=== PATIENT | male | born 1995 | race African-American/Black ===

== ENCOUNTER 2020-09-19 16:27 | Inpatient (IN) | payer MEDICAID, OTHER ==
[~2020-09-19] VITALS: Ht 182.9 cm; Wt 74.1 kg
[2020-09-19] MEDS ORDERED: SODIUM CHLORIDE 0.9% 1,000 ML IV ONE ×2 (17:00)
[2020-09-19] MEDS ORDERED: HYDROmorphone HCL 2 MG/ML VL IV ONE ×3 (17:00→18:30)
[2020-09-19] MEDS ORDERED: ONDANSETRON HCL 4 MG/2 ML VIAL IV ONE (17:00)
[2020-09-19] MEDS ORDERED: KETOROLAC TROMETH 30 MG/ML 1ML VIAL IV ONE (17:00)
[2020-09-19 17:44] LABS: Basophils # (auto) 0.2 10 ^3/uL (0-0.2); Basophils % (auto) 1.3 % (0.0-2.0); Eosinophils # (auto) 0.1 10 ^3/uL (0-0.8); Eosinophils % (auto) 0.5 % (0.0-7.0); Hematocrit 26.5 % (41.0-53.0); Hemoglobin 8.9 g/dL (13.5-17.5); Lymphocytes # (auto) 2.1 10 ^3/uL (0.4-5.4); Lymphocytes % (auto) 15.7 % (10.0-50.0); Mean Corpuscular Hemoglobin 30.8 pg (28.0-32.0); Mean Corpuscular Hgb Conc. 33.7 g/dL (32.0-36.0); Mean Corpuscular Volume 91.4 fL (80.0-100.0); Monocytes # (auto) 1.9 10 ^3/uL (0-1.3); Monocytes % (auto) 14.2 % (0.0-12.0); Neutrophils % (auto) 68.3 % (37.0-80.0); Nucleated Red Blood Cells % 0.7 %; Platelet Count (auto) 374 10^3/uL (140-450); White Blood Cell 13.1 10^3/uL (4.4-10.8)
[2020-09-19 17:46] LABS: Red Cell Distribution Width 22.2 % (11.8-14.3)
[2020-09-19 18:05] LABS: Potassium 3.5 mmol/L (3.5-5.1)
[2020-09-19 18:09] LABS: Bilirubin, Total 3.7 mg/dL (0.2-1.0); Total Protein 8.5 g/dL (6.4-8.2)
[2020-09-19] MEDS ORDERED: ACETAMINOPHEN 325 MG TAB PO PRN (19:15)
[2020-09-19] MEDS ORDERED: MORPHINE SULF INJ 2 MG/ML SYRINGE 1ML IV PRN (19:15)
[2020-09-19] MEDS ORDERED: HYDROcodone-ACET 10/325MG TAB PO PRN (19:15)
[2020-09-19] MEDS ORDERED: NITROGLYCERIN 0.4 MG SL TAB SL PRN (19:15)
[2020-09-19] MEDS: SODIUM CHLORIDE 0.9% 1,000 ML IV SCH (21:16)
[2020-09-19] MEDS: HYDROmorphone HCL 2 MG/ML VL IV PRN (21:59)
[2020-09-19 23:20] VITALS: BP 98/50
[2020-09-20] MEDS ORDERED: FOLITAB22 PO (00:53)
[2020-09-20] MEDS ORDERED: PERCOT PO (00:53)
[2020-09-20] MEDS: HYDROmorphone HCL 2 MG/ML VL IV PRN ×6 (01:03→22:00)
[2020-09-20] MEDS: OXYCODONE W/ ACETAMINOPHEN 5/325MG TABLET PO PRN ×3 (01:57→16:48)
[2020-09-20] MEDS: SODIUM CHLORIDE 0.9% 1,000 ML IV SCH ×4 (02:25→22:01)
[2020-09-20 05:00] VITALS: BP 98/57
[2020-09-20 07:37] LABS: Basophils # (auto) 0.2 10 ^3/uL (0-0.2); Basophils % (auto) 1.2 % (0.0-2.0); Eosinophils # (auto) 0.2 10 ^3/uL (0-0.8); Eosinophils % (auto) 1.5 % (0.0-7.0); Hematocrit 23.7 % (41.0-53.0); Hemoglobin 8.1 g/dL (13.5-17.5); Lymphocytes # (auto) 3.3 10 ^3/uL (0.4-5.4); Lymphocytes % (auto) 24.7 % (10.0-50.0); Mean Corpuscular Hemoglobin 31.2 pg (28.0-32.0); Mean Corpuscular Hgb Conc. 34.3 g/dL (32.0-36.0); Monocytes # (auto) 2.2 10 ^3/uL (0-1.3); Monocytes % (auto) 16.3 % (0.0-12.0); Neutrophils # (auto) 7.5 10 ^3/uL (1.6-8.6); Neutrophils % (auto) 56.3 % (37.0-80.0); Nucleated Red Blood Cells % 0.6 %; Platelet Count (auto) 288 10^3/uL (140-450); Red Blood Cells 2.61 10^6/uL (4.5-5.90); Red Cell Distribution Width 21.9 % (11.8-14.3); White Blood Cell 13.3 10^3/uL (4.4-10.8)
[2020-09-20 08:06] LABS: Potassium 4.5 mmol/L (3.5-5.1)
[2020-09-20 08:11] LABS: BUN/Creatinine Ratio 14.6; Calcium 7.8 mg/dL (8.5-10.1); Magnesium 2.4 mg/dL (1.6-2.6)
[2020-09-20 09:00] VITALS: BP 104/40
[2020-09-20] MEDS: ENOXAPARIN SOD 40 MG/0.4 ML SYRINGE SC SCH (09:22)
[2020-09-20] MEDS ORDERED: HYDROmorphone HCL 2 MG/ML VL IV ONE (11:00)
[2020-09-20] MEDS ORDERED: KETOROLAC TROMETH 30 MG/ML 1ML VIAL IV ONE (11:30)
[2020-09-20 13:00] VITALS: BP 95/65
[2020-09-20 17:00] VITALS: BP 104/65
[2020-09-20] MEDS: KETOROLAC TROMETH 30 MG/ML 1ML VIAL IV PRN (20:03)
[2020-09-20] MEDS: ONDANSETRON HCL 4 MG/2 ML VIAL IV PRN (20:03)
[2020-09-20 22:00] VITALS: BP 89/54
[2020-09-21] VITALS (9 sets, daily range): BP systolic 96–120; BP diastolic 48–64
[2020-09-21] MEDS: HYDROmorphone HCL 2 MG/ML VL IV PRN ×5 (02:08→21:34)
[2020-09-21] MEDS: SODIUM CHLORIDE 0.9% 1,000 ML IV SCH ×3 (02:21→18:25)
[2020-09-21] MEDS: KETOROLAC TROMETH 30 MG/ML 1ML VIAL IV PRN ×3 (04:35→20:49)
[2020-09-21 06:18] LABS: Basophils # (auto) 0.1 10 ^3/uL (0-0.2); Eosinophils # (auto) 0.3 10 ^3/uL (0-0.8); Eosinophils % (auto) 2.4 % (0.0-7.0); Hematocrit 19.7 % (41.0-53.0); Lymphocytes % (auto) 17.2 % (10.0-50.0); Mean Corpuscular Hemoglobin 31.1 pg (28.0-32.0); Mean Corpuscular Hgb Conc. 35.1 g/dL (32.0-36.0); Mean Corpuscular Volume 88.6 fL (80.0-100.0); Monocytes % (auto) 16.6 % (0.0-12.0); Neutrophils # (auto) 7.4 10 ^3/uL (1.6-8.6); Neutrophils % (auto) 62.8 % (37.0-80.0); Nucleated Red Blood Cells % 0.7 %; Platelet Count (auto) 301 10^3/uL (140-450); Red Blood Cells 2.22 10^6/uL (4.5-5.90); White Blood Cell 11.8 10^3/uL (4.4-10.8)
[2020-09-21 06:31] LABS: Red Cell Distribution Width 24.3 % (11.8-14.3)
[2020-09-21 06:32] LABS: Hemoglobin 6.9 g/dL (13.5-17.5)
[2020-09-21 06:36] LABS: Magnesium 2.3 mg/dL (1.6-2.6); Potassium 3.8 mmol/L (3.5-5.1)
[2020-09-21 06:37] LABS: BUN/Creatinine Ratio 22.7; Calcium 7.9 mg/dL (8.5-10.1)
[2020-09-21] MEDS ORDERED: FOLIC ACID 1 MG TAB PO SCH (10:00)
[2020-09-21] MEDS: ONDANSETRON HCL 4 MG/2 ML VIAL IV PRN (10:42)
[2020-09-21] MEDS: ENOXAPARIN SOD 40 MG/0.4 ML SYRINGE SC SCH (11:00)
[2020-09-21] MEDS: FOLIC ACID 1 MG TAB PO SCH (11:00)
[2020-09-21] MEDS ORDERED: HYDROmorphone HCL 2 MG/ML VL IV PRN (14:15)
[2020-09-21 19:03] LABS: Basophils # (auto) 0.1 10 ^3/uL (0-0.2); Eosinophils # (auto) 0.3 10 ^3/uL (0-0.8); Hemoglobin 7.8 g/dL (13.5-17.5); Lymphocytes # (auto) 2.6 10 ^3/uL (0.4-5.4); Monocytes # (auto) 1.9 10 ^3/uL (0-1.3); Neutrophils # (auto) 8.1 10 ^3/uL (1.6-8.6); White Blood Cell 12.9 10^3/uL (4.4-10.8)
[2020-09-21 19:05] LABS: Basophils % (auto) 0.6 % (0.0-2.0); Eosinophils % (auto) 2.3 % (0.0-7.0); Hematocrit 21.8 % (41.0-53.0); Lymphocytes % (auto) 19.7 % (10.0-50.0); Mean Corpuscular Hemoglobin 31.1 pg (28.0-32.0); Mean Corpuscular Hgb Conc. 35.7 g/dL (32.0-36.0); Monocytes % (auto) 14.8 % (0.0-12.0); Neutrophils % (auto) 62.6 % (37.0-80.0); Nucleated Red Blood Cells % 0.6 %; Platelet Count (auto) 269 10^3/uL (140-450)
[2020-09-21 19:15] LABS: Red Cell Distribution Width 23.5 % (11.8-14.3)
[2020-09-22] MEDS: HYDROmorphone HCL 2 MG/ML VL IV PRN ×8 (00:52→23:54)
[2020-09-22] MEDS: SODIUM CHLORIDE 0.9% 1,000 ML IV SCH ×5 (04:24→17:52)
[2020-09-22 05:00] VITALS: BP 121/63
[2020-09-22 06:57] LABS: Basophils # (auto) 0.2 10 ^3/uL (0-0.2); Hemoglobin 7.6 g/dL (13.5-17.5)
[2020-09-22 06:58] LABS: Basophils % (auto) 1.7 % (0.0-2.0); Eosinophils # (auto) 0.4 10 ^3/uL (0-0.8); Eosinophils % (auto) 3.3 % (0.0-7.0); Hematocrit 21.1 % (41.0-53.0); Lymphocytes # (auto) 2.4 10 ^3/uL (0.4-5.4); Lymphocytes % (auto) 19.1 % (10.0-50.0); Mean Corpuscular Hemoglobin 31.7 pg (28.0-32.0); Mean Corpuscular Hgb Conc. 36.1 g/dL (32.0-36.0); Mean Corpuscular Volume 87.8 fL (80.0-100.0); Monocytes % (auto) 15.3 % (0.0-12.0); Neutrophils # (auto) 7.7 10 ^3/uL (1.6-8.6); Neutrophils % (auto) 60.6 % (37.0-80.0); Nucleated Red Blood Cells % 0.4 %; Platelet Count (auto) 279 10^3/uL (140-450); Red Blood Cells 2.41 10^6/uL (4.5-5.90); White Blood Cell 12.8 10^3/uL (4.4-10.8)
[2020-09-22] MEDS: ENOXAPARIN SOD 40 MG/0.4 ML SYRINGE SC SCH (08:37)
[2020-09-22] MEDS: FOLIC ACID 1 MG TAB PO SCH (08:37)
[2020-09-22 09:25] VITALS: BP 115/75
[2020-09-22] MEDS: oxyCODONE HCL 5MG TAB PO PRN ×2 (10:11→18:21)
[2020-09-22 12:31] VITALS: BP 110/58
[2020-09-22 16:48] VITALS: BP 111/63
[2020-09-22 22:00] VITALS: BP 111/61
[2020-09-23] MEDS: SODIUM CHLORIDE 0.9% 1,000 ML IV SCH ×3 (01:12→17:20)
[2020-09-23] MEDS: KETOROLAC TROMETH 30 MG/ML 1ML VIAL IV PRN (03:22)
[2020-09-23 05:00] VITALS: BP_SYST 105; BP_SYST 141; BP_DIAS 65; BP_DIAS 83
[2020-09-23] MEDS: HYDROmorphone HCL 2 MG/ML VL IV PRN ×6 (06:32→21:32)
[2020-09-23 06:38] LABS: Basophils # (auto) 0.1 10 ^3/uL (0-0.2); Lymphocytes # (auto) 2.2 10 ^3/uL (0.4-5.4); Neutrophils # (auto) 8.7 10 ^3/uL (1.6-8.6)
[2020-09-23 06:42] LABS: Basophils % (auto) 0.9 % (0.0-2.0); Eosinophils # (auto) 0.5 10 ^3/uL (0-0.8); Eosinophils % (auto) 3.6 % (0.0-7.0); Hemoglobin 7.7 g/dL (13.5-17.5); Lymphocytes % (auto) 15.9 % (10.0-50.0); Mean Corpuscular Hemoglobin 32.9 pg (28.0-32.0); Mean Corpuscular Hgb Conc. 36.5 g/dL (32.0-36.0); Mean Corpuscular Volume 90.2 fL (80.0-100.0); Monocytes # (auto) 2.2 10 ^3/uL (0-1.3); Monocytes % (auto) 15.9 % (0.0-12.0); Neutrophils % (auto) 63.7 % (37.0-80.0); Nucleated Red Blood Cells % 0.8 %; Platelet Count (auto) 250 10^3/uL (140-450); Red Blood Cells 2.33 10^6/uL (4.5-5.90); White Blood Cell 13.6 10^3/uL (4.4-10.8)
[2020-09-23 06:54] LABS: Red Cell Distribution Width 23.6 % (11.8-14.3)
[2020-09-23 09:08] VITALS: BP 110/60
[2020-09-23] MEDS: FOLIC ACID 1 MG TAB PO SCH (09:42)
[2020-09-23] MEDS: ENOXAPARIN SOD 40 MG/0.4 ML SYRINGE SC SCH (09:45)
[2020-09-23 13:00] VITALS: BP 104/54
[2020-09-23 16:54] VITALS: BP 114/64
[2020-09-23] MEDS: oxyCODONE HCL 5MG TAB PO PRN (20:20)
[2020-09-23] MEDS: ONDANSETRON HCL 4 MG/2 ML VIAL IV PRN (21:43)
[2020-09-23 22:00] VITALS: BP 118/69
[2020-09-24] VITALS (7 sets, daily range): BP systolic 110–124; BP diastolic 57–73
[2020-09-24] MEDS: HYDROmorphone HCL 2 MG/ML VL IV PRN ×8 (00:37→23:17)
[2020-09-24] MEDS: SODIUM CHLORIDE 0.9% 1,000 ML IV SCH ×4 (00:38→19:57)
[2020-09-24 06:15] LABS: Mean Corpuscular Hemoglobin 33.1 pg (28.0-32.0); Mean Corpuscular Hgb Conc. 35.8 g/dL (32.0-36.0); Mean Corpuscular Volume 92.4 fL (80.0-100.0); Platelet Count (auto) 255 10^3/uL (140-450); Red Blood Cells 1.95 10^6/uL (4.5-5.90)
[2020-09-24 06:29] LABS: Red Cell Distribution Width 25.6 % (11.8-14.3)
[2020-09-24 06:31] LABS: Band Neutrophils % (manual) 0; Basophils % (manual) 0 (0.0-2.0); Blast Cells 0; Hemoglobin 6.4 g/dL (13.5-17.5); Metamyelocytes % 0; Promyelocytes % 0; Reactive Lymphocytes 0
[2020-09-24 07:51] LABS: Eosinophils % (manual) 4 (0-7); Lymphocytes % (manual) 23 (10.0-50.0); Monocytes % (manual) 6 (0-12); Myelocytes % 1
[2020-09-24] MEDS: FOLIC ACID 1 MG TAB PO SCH (10:12)
[2020-09-24] MEDS: ENOXAPARIN SOD 40 MG/0.4 ML SYRINGE SC SCH (10:12)
[2020-09-24] MEDS: KETOROLAC TROMETH 30 MG/ML 1ML VIAL IV PRN (12:52)
[2020-09-25] VITALS (8 sets, daily range): BP systolic 112–133; BP diastolic 59–75
[2020-09-25] MEDS: KETOROLAC TROMETH 30 MG/ML 1ML VIAL IV PRN (00:51)
[2020-09-25] MEDS: HYDROmorphone HCL 2 MG/ML VL IV PRN ×7 (02:27→22:43)
[2020-09-25] MEDS: SODIUM CHLORIDE 0.9% 1,000 ML IV SCH ×4 (02:28→22:33)
[2020-09-25] MEDS: ENOXAPARIN SOD 40 MG/0.4 ML SYRINGE SC SCH (10:00)
[2020-09-25] MEDS: FOLIC ACID 1 MG TAB PO SCH (10:14)
[2020-09-25 14:06] LABS: Hemoglobin 7.7 g/dL (13.5-17.5); Mean Corpuscular Hemoglobin 32.6 pg (28.0-32.0); Red Blood Cells 2.37 10^6/uL (4.5-5.90)
[2020-09-25 14:08] LABS: Hematocrit 21.9 % (41.0-53.0); Mean Corpuscular Hgb Conc. 35.2 g/dL (32.0-36.0); Mean Corpuscular Volume 92.5 fL (80.0-100.0); Platelet Count (auto) 268 10^3/uL (140-450); White Blood Cell 14.1 10^3/uL (4.4-10.8)
[2020-09-25 14:09] LABS: Red Cell Distribution Width 25.2 % (11.8-14.3)
[2020-09-25 14:11] LABS: Band Neutrophils % (manual) 0; Basophils % (manual) 0 (0.0-2.0); Blast Cells 0; Myelocytes % 0; Promyelocytes % 0; Reactive Lymphocytes 0
[2020-09-25 14:24] LABS: Eosinophils % (manual) 2 (0-7); Lymphocytes % (manual) 7 (10.0-50.0); Metamyelocytes % 3; Monocytes % (manual) 11 (0-12)
[2020-09-26] VITALS (9 sets, daily range): BP systolic 113–136; BP diastolic 58–85
[2020-09-26] MEDS: HYDROmorphone HCL 2 MG/ML VL IV PRN ×3 (02:31→09:19)
[2020-09-26 05:32] LABS: Hematocrit 21.5 % (41.0-53.0); Hemoglobin 7.3 g/dL (13.5-17.5); Mean Corpuscular Hgb Conc. 34.2 g/dL (32.0-36.0); Mean Corpuscular Volume 93.6 fL (80.0-100.0); Platelet Count (auto) 233 10^3/uL (140-450); Red Blood Cells 2.29 10^6/uL (4.5-5.90); White Blood Cell 13.2 10^3/uL (4.4-10.8)
[2020-09-26 05:36] LABS: Red Cell Distribution Width 23.7 % (11.8-14.3)
[2020-09-26 05:37] LABS: Band Neutrophils % (manual) 0; Basophils % (manual) 0 (0.0-2.0); Blast Cells 0; Eosinophils % (manual) 0 (0-7); Myelocytes % 0; Promyelocytes % 0; Reactive Lymphocytes 0
[2020-09-26] MEDS: SODIUM CHLORIDE 0.9% 1,000 ML IV SCH ×2 (05:39→15:16)
[2020-09-26 06:44] LABS: Lymphocytes % (manual) 25 (10.0-50.0); Metamyelocytes % 2; Monocytes % (manual) 12 (0-12)
[2020-09-26] MEDS: FOLIC ACID 1 MG TAB PO SCH (09:19)
[2020-09-26] MEDS: ENOXAPARIN SOD 40 MG/0.4 ML SYRINGE SC SCH ×2 (09:19→09:23)
[2020-09-26] MEDS: oxyCODONE HCL 5MG TAB PO PRN (12:45)
== END 2020-09-26 18:00 | disposition home or self-care (01) | DRG 662 ==
LOC: ER 16:27 → TELE 19:12 → TELE-WESTW 23:09
PROVIDERS: ADMIT Internal Medicine; ATTEND Internal Medicine
PROC: 30233N1 Transfusion of Nonautologous Red Blood Cells into Peripheral Vein, Percutaneous Approach (ICD-10-PCS; principal; 2020-09-21)
DX: D57.00 Hb-SS disease with crisis, unspecified (principal); D72.829 Elevated white blood cell count, unspecified; G89.4 Chronic pain syndrome; Z20.822 Contact with and (suspected) exposure to COVID-19; R70.1 Abnormal plasma viscosity; F12.90 Cannabis use, unspecified, uncomplicated; Z83.2 Family history of diseases of the blood and blood-forming organs and certain disorders involving the immune mechanism; Z85.858 Personal history of malignant neoplasm of other endocrine glands; M54.5 Low back pain; Z88.0 Allergy status to penicillin
CPT/HCPCS: 36415; 71045; 80048; 80053; 83021; 83615; 83735; 85007; 85025; 85027; 85045; 85660; 86850; 86900; 86901; 86920; 87081; 87426; 96361; 96374; 96375; 96376; G0378; J1885; J2405

== ENCOUNTER 2021-04-24 13:50 | Inpatient (IN) | payer MEDICAID ==
[~2021-04-24] VITALS: Ht 182.9 cm; Wt 67.4 kg
[~2021-04-24 13:50] MED LIST: FOLITAB22 PO; PERCOT PO
[2021-04-24] MEDS ORDERED: KETOROLAC TROMETH 30 MG/ML 1ML VIAL IV ONE (14:45)
[2021-04-24] MEDS ORDERED: HYDROmorphone HCL 2 MG/ML VL IV ONE (14:45)
[2021-04-24] MEDS ORDERED: ONDANSETRON HCL 4 MG/2 ML VIAL IV ONE (14:45)
[2021-04-24] MEDS ORDERED: SODIUM CHLORIDE 0.9% 1,000 ML IV ONE ×2 (14:45)
[2021-04-24 15:22] LABS: Basophils # (auto) 0.2 10 ^3/uL (0-0.2); Basophils % (auto) 1.5 % (0.0-2.0); Eosinophils # (auto) 0.2 10 ^3/uL (0-0.8); Eosinophils % (auto) 1.6 % (0.0-7.0); Hematocrit 26.9 % (41.0-53.0); Hemoglobin 9.5 g/dL (13.5-17.5); Lymphocytes # (auto) 2.3 10 ^3/uL (0.4-5.4); Lymphocytes % (auto) 19.4 % (10.0-50.0); Mean Corpuscular Hemoglobin 31.8 pg (28.0-32.0); Mean Corpuscular Hgb Conc. 35.2 g/dL (32.0-36.0); Mean Corpuscular Volume 90.2 fL (80.0-100.0); Monocytes # (auto) 1.7 10 ^3/uL (0-1.3); Monocytes % (auto) 14.2 % (0.0-12.0); Neutrophils # (auto) 7.6 10 ^3/uL (1.6-8.6); Neutrophils % (auto) 63.3 % (37.0-80.0); Nucleated Red Blood Cells % 0.6 %; Red Blood Cells 2.98 10^6/uL (4.5-5.90)
[2021-04-24 15:24] LABS: Red Cell Distribution Width 21.7 % (11.8-14.3)
[2021-04-24 15:34] LABS: Albumin 4.4 g/dL (3.4-5.0); Calcium 8.6 mg/dL (8.5-10.1); Potassium 5.5 mmol/L (3.5-5.1)
[2021-04-24 15:53] LABS: BUN/Creatinine Ratio 14.8; Bilirubin, Total 3.1 mg/dL (0.2-1.0); Total Protein 8.5 g/dL (6.4-8.2)
[2021-04-24] MEDS ORDERED: CALCIUM GLUC 1,000mg/50ml-NS 50 ML IV ONE (17:45)
[2021-04-24] MEDS ORDERED: SODIUM BICARBONATE 8.4% INJ 50ML SYRINGE IV ONE (17:45)
[2021-04-24] MEDS ORDERED: SODIUM ZIRCONIUM CYCL 10 GM PAK PO ONE (17:45)
[2021-04-24] MEDS ORDERED: ALBUTEROL SULF 2.5 MG/0.5ML(0.5%) NEB SOLN NEB ONE (17:45)
[2021-04-24] MEDS ORDERED: FUROSEMIDE 20 MG/2 ML VIAL IV ONE (17:45)
[2021-04-24] MEDS ORDERED: DOCUSATE SOD 100 MG CAP PO PRN (19:00)
[2021-04-24] MEDS ORDERED: TEMAZEPAM 15 MG CAP PO PRN (19:00)
[2021-04-24] MEDS ORDERED: MORPHINE SULFATE INJECTION 2 MG/ML SYRG IV PRN (19:00)
[2021-04-24] MEDS ORDERED: NITROGLYCERIN 0.4 MG SL TAB SL PRN (19:00)
[2021-04-24] MEDS ORDERED: ONDANSETRON HCL 4 MG/2 ML VIAL IV PRN (19:00)
[2021-04-24] MEDS ORDERED: HYDROcodone-ACET 5/325MG TAB PO PRN (19:00)
[2021-04-24] MEDS: SODIUM CHLORIDE 0.9% 1,000 ML IV SCH (22:00)
[2021-04-24 22:50] LABS: Calcium 8.6 mg/dL (8.5-10.1)
[2021-04-24 23:01] LABS: BUN/Creatinine Ratio 18.2
[2021-04-25 00:53] LABS: Urine Bacteria NONE SEEN /hpf (None Seen); Urine Blood Negative /uL (Negative); Urine Specific Gravity 1.008 (1.001-1.035); Urine WBC <1 /hpf (0 - 3)
[2021-04-25] MEDS: SODIUM CHLORIDE 0.9% 1,000 ML IV SCH ×3 (03:30→20:02)
[2021-04-25 07:23] LABS: Basophils # (auto) 0.1 10 ^3/uL (0-0.2); Basophils % (auto) 1.3 % (0.0-2.0); Eosinophils # (auto) 0.2 10 ^3/uL (0-0.8); Eosinophils % (auto) 1.8 % (0.0-7.0); Hematocrit 25.3 % (41.0-53.0); Hemoglobin 8.8 g/dL (13.5-17.5); Lymphocytes # (auto) 2.5 10 ^3/uL (0.4-5.4); Lymphocytes % (auto) 22.4 % (10.0-50.0); Mean Corpuscular Hemoglobin 31.7 pg (28.0-32.0); Mean Corpuscular Hgb Conc. 34.7 g/dL (32.0-36.0); Mean Corpuscular Volume 91.3 fL (80.0-100.0); Monocytes # (auto) 1.9 10 ^3/uL (0-1.3); Monocytes % (auto) 17.4 % (0.0-12.0); Neutrophils # (auto) 6.4 10 ^3/uL (1.6-8.6); Neutrophils % (auto) 57.1 % (37.0-80.0); Nucleated Red Blood Cells % 0.4 %; Red Blood Cells 2.77 10^6/uL (4.5-5.90); White Blood Cell 11.2 10^3/uL (4.4-10.8)
[2021-04-25 07:26] LABS: Albumin 3.7 g/dL (3.4-5.0); Calcium 8.2 mg/dL (8.5-10.1); Potassium 3.9 mmol/L (3.5-5.1)
[2021-04-25 07:27] LABS: Amphetamine Screen, Urine NEGATIVE (NEGATIVE); Barbiturate Scree,Urine NEGATIVE (NEGATIVE); Benzodiazephine Screen, Urine NEGATIVE (NEGATIVE); Cannabinoid Screen, Urine NEGATIVE (NEGATIVE); Cocaine Screen, Urine NEGATIVE (NEGATIVE); Opiate Scree,Urine NEGATIVE (NEGATIVE); Phencyclidine Screen, Urine NEGATIVE (NEGATIVE)
[2021-04-25 07:30] LABS: BUN/Creatinine Ratio 13.7; Total Protein 7.9 g/dL (6.4-8.2)
[2021-04-25 07:38] LABS: Alcohol, Urine < 3.0 mg/dL (0-10)
[2021-04-25 07:52] LABS: Red Cell Distribution Width 21.3 % (11.8-14.3)
[2021-04-25] MEDS: ENOXAPARIN SOD 40 MG/0.4 ML SYRINGE SC SCH (10:00)
[2021-04-25] MEDS ORDERED: PERCOT PO (10:13)
[2021-04-25] MEDS ORDERED: FOLI1TAB6 PO (10:13)
[2021-04-25] MEDS: HYDROmorphone HCL 2 MG/ML VL IV PRN ×5 (10:16→22:46)
[2021-04-25] MEDS ORDERED: POM PO (10:21)
[2021-04-25 10:22] VITALS: BP 113/64
[2021-04-25 13:09] VITALS: BP 90/44
[2021-04-25 17:00] VITALS: BP 107/67
[2021-04-25 22:00] VITALS: BP 105/62
[2021-04-26] MEDS: OXYCODONE W/ ACETAMINOPHEN 5/325MG TABLET PO PRN ×2 (00:07→11:58)
[2021-04-26] MEDS: HYDROmorphone HCL 2 MG/ML VL IV PRN ×6 (02:09→21:12)
[2021-04-26] MEDS: SODIUM CHLORIDE 0.9% 1,000 ML IV SCH ×3 (03:40→20:36)
[2021-04-26 05:00] VITALS: BP 99/63
[2021-04-26 09:00] VITALS: BP 106/71
[2021-04-26] MEDS: ENOXAPARIN SOD 40 MG/0.4 ML SYRINGE SC SCH (09:40)
[2021-04-26 13:09] VITALS: BP 88/44
[2021-04-26 17:00] VITALS: BP 99/56
[2021-04-26 22:00] VITALS: BP 110/57
[2021-04-27] MEDS: HYDROmorphone HCL 2 MG/ML VL IV PRN ×7 (01:08→23:54)
[2021-04-27] MEDS: SODIUM CHLORIDE 0.9% 1,000 ML IV SCH ×3 (04:25→23:54)
[2021-04-27 05:00] VITALS: BP 91/50
[2021-04-27 08:56] VITALS: BP 101/60
[2021-04-27] MEDS: ENOXAPARIN SOD 40 MG/0.4 ML SYRINGE SC SCH (09:22)
[2021-04-27 12:46] VITALS: BP 111/65
[2021-04-27 16:39] VITALS: BP 98/62
[2021-04-27 22:00] VITALS: BP 93/55
[2021-04-28] MEDS: HYDROmorphone HCL 2 MG/ML VL IV PRN ×6 (03:26→23:29)
[2021-04-28 05:00] VITALS: BP 97/63
[2021-04-28] MEDS: SODIUM CHLORIDE 0.9% 1,000 ML IV SCH ×3 (05:50→23:29)
[2021-04-28 08:11] VITALS: BP 104/69
[2021-04-28] MEDS: ENOXAPARIN SOD 40 MG/0.4 ML SYRINGE SC SCH (10:00)
[2021-04-28 12:30] VITALS: BP 102/59
[2021-04-28 16:30] VITALS: BP 105/59
[2021-04-28 22:29] VITALS: BP 95/57
[2021-04-29] MEDS: HYDROmorphone HCL 2 MG/ML VL IV PRN ×6 (02:59→19:30)
[2021-04-29 05:30] VITALS: BP 95/53
[2021-04-29] MEDS: SODIUM CHLORIDE 0.9% 1,000 ML IV SCH ×2 (07:20→15:42)
[2021-04-29 09:00] VITALS: BP 112/66
[2021-04-29] MEDS: ENOXAPARIN SOD 40 MG/0.4 ML SYRINGE SC SCH (09:47)
[2021-04-29 12:40] VITALS: BP 94/54
[2021-04-29 17:00] VITALS: BP 100/65
[2021-04-29 18:18] VITALS: BP 111/76
[2021-04-29 20:20] VITALS: BP 98/64
== END 2021-04-29 20:25 | disposition home or self-care (01) | DRG 662 ==
LOC: ER 13:50 → TELE 19:00 → TELE-WESTW 04-25 09:55
PROVIDERS: ADMIT Internal Medicine; ATTEND Internal Medicine
DX: D57.00 Hb-SS disease with crisis, unspecified (principal); I95.9 Hypotension, unspecified; D72.829 Elevated white blood cell count, unspecified; E87.5 Hyperkalemia; Z20.822 Contact with and (suspected) exposure to COVID-19; M54.9 Dorsalgia, unspecified; Z83.3 Family history of diabetes mellitus; Z82.49 Family history of ischemic heart disease and other diseases of the circulatory system; Z88.0 Allergy status to penicillin
CPT/HCPCS: 36415; 71045; 80048; 80053; 80307; 81001; 84484; 85025; 85045; 87081; 87426; 94640; 96361; 96374; 96375; G0378; J1885; J2405

== ENCOUNTER 2021-08-12 02:59 | Emergency (ER) | payer MEDICAID ==
[~2021-08-12] VITALS: Ht 195.6 cm; Wt 72.6 kg
[~2021-08-12 02:59] MED LIST changes: +FOLI1TAB6 PO; -FOLITAB22 PO; -PERCOT PO; +POM PO
[2021-08-12] MEDS ORDERED: SODIUM CHLORIDE 0.9% 1,000 ML IV ONE (03:30)
[2021-08-12] MEDS ORDERED: HYDROmorphone HCL 2 MG/ML VL IV ONE ×2 (03:30→05:15)
[2021-08-12] MEDS ORDERED: PERCOT PO (05:22)
[2021-08-12 06:17] VITALS: BP 108/55
== END 2021-08-12 06:34 | disposition home or self-care (01) ==
LOC: ER 03:06
DX: D57.00 Hb-SS disease with crisis, unspecified (principal); Z79.899 Other long term (current) drug therapy; Z88.0 Allergy status to penicillin
CPT/HCPCS: 96361; 96374; 96376; 99285; J1170; J7030

== ENCOUNTER 2023-01-24 16:11 | Emergency (ER) | payer MEDICAID ==
[~2023-01-24] VITALS: Ht 182.9 cm; Wt 72.4 kg
[~2023-01-24 16:11] MED LIST changes: +FOLI-119 PO; -FOLI1TAB6 PO; +PERCOT PO
[2023-01-24] MEDS ORDERED: LORATADINE 10 MG TAB PO ONE (17:00)
[2023-01-24] MEDS ORDERED: HYDROmorphone HCL 2 MG/ML VL/or syr IV ONE ×2 (17:00→21:00)
[2023-01-24] MEDS ORDERED: SODIUM CHLORIDE 0.9% 1,000 ML IV ONE ×2 (17:00→22:15)
[2023-01-24 18:50] LABS: Basophils # (auto) 0.2 10 ^3/uL (0-0.2); Basophils % (auto) 1.6 % (0.0-2.0); Eosinophils # (auto) 0.4 10 ^3/uL (0-0.8); Hemoglobin 8.2 g/dL (13.5-17.5); Monocytes # (auto) 1.7 10 ^3/uL (0-1.3); White Blood Cell 11.1 10^3/uL (4.4-10.8)
[2023-01-24 18:52] LABS: Eosinophils % (auto) 3.2 % (0.0-7.0); Hematocrit 24.6 % (41.0-53.0); Lymphocytes # (auto) 3.7 10 ^3/uL (0.4-5.4); Lymphocytes % (auto) 33.5 % (10.0-50.0); Mean Corpuscular Hemoglobin 29.1 pg (28.0-32.0); Mean Corpuscular Hgb Conc. 33.2 g/dL (32.0-36.0); Mean Corpuscular Volume 87.5 fL (80.0-100.0); Monocytes % (auto) 15.2 % (0.0-12.0); Neutrophils # (auto) 5.1 10 ^3/uL (1.6-8.6); Neutrophils % (auto) 46.5 % (37.0-80.0); Nucleated Red Blood Cells % 0.7 %; Red Blood Cells 2.81 10^6/uL (4.5-5.90)
[2023-01-24 18:53] LABS: Red Cell Distribution Width 24.9 % (11.8-14.3)
[2023-01-24 19:10] LABS: Albumin 4.1 g/dL (3.4-5.0); Calcium 8.9 mg/dL (8.5-10.1); Potassium 4.3 mmol/L (3.5-5.1)
[2023-01-24 19:26] LABS: BUN/Creatinine Ratio 19.4 (10.0-20.0); Bilirubin, Total 2.4 mg/dL (0.2-1.0); Total Protein 7.9 g/dL (6.4-8.2)
[2023-01-24 21:30] VITALS: PULSE 97; RESP 16; O2SAT 95
[2023-01-24] MEDS ORDERED: KETOROLAC TROMETH 30 MG/ML 1ML VIAL IV ONE (22:15)
[2023-01-25] MEDS ORDERED: HYDROmorphone HCL 2 MG/ML VL/or syr IV ONE
[2023-01-25 00:32] VITALS: TEMP 98.4
[2023-01-25] MEDS ORDERED: HYDROmorphone HCL 2 MG/ML VL/or syr IV PRN ×2 (01:00→03:00)
[2023-01-25 02:16] VITALS: BP 114/79; PULSE 68; RESP 16; O2SAT 96
== END 2023-01-25 02:17 | disposition home or self-care (01) ==
LOC: ER 16:11
DX: D57.00 Hb-SS disease with crisis, unspecified (principal); Z79.899 Other long term (current) drug therapy; Z88.0 Allergy status to penicillin
CPT/HCPCS: 36415; 80053; 85025; 96361; 96374; 96375; 96376; 99285; J1170; J1885; J7030

== ENCOUNTER 2023-02-03 17:15 | Emergency (ER) | payer MEDICAID ==
[~2023-02-03] VITALS: Ht 182.9 cm; Wt 74.0 kg
[2023-02-03 18:34] LABS: Hematocrit 25.8 % (41.0-53.0); Hemoglobin 8.7 g/dL (13.5-17.5); Mean Corpuscular Hemoglobin 28.7 pg (28.0-32.0); Mean Corpuscular Hgb Conc. 33.6 g/dL (32.0-36.0); Mean Corpuscular Volume 85.4 fL (80.0-100.0); Red Blood Cells 3.03 10^6/uL (4.5-5.90); White Blood Cell 13.7 10^3/uL (4.4-10.8)
[2023-02-03 18:38] LABS: Red Cell Distribution Width 23.5 % (11.8-14.3)
[2023-02-03 18:39] LABS: Basophils % (manual) 0 (0.0-2.0); Blast Cells 0; Myelocytes % 0; Promyelocytes % 0; Reactive Lymphocytes 0
[2023-02-03 18:53] LABS: Albumin 4.4 g/dL (3.4-5.0); BUN/Creatinine Ratio 21.7 (10.0-20.0); Calcium 8.7 mg/dL (8.5-10.1); Potassium 4.1 mmol/L (3.5-5.1)
[2023-02-03 18:56] LABS: Bilirubin, Total 3.1 mg/dL (0.2-1.0)
[2023-02-03 19:06] LABS: Anisocytosis Moderate; Band Neutrophils % (manual) 5; Eosinophils % (manual) 1 (0-7); Lymphocytes % (manual) 19 (10.0-50.0); Metamyelocytes % 1; Monocytes % (manual) 7 (0-12); Platelet Estimate Adequate; Sickle Cells FEW; Target Cell FEW
[2023-02-03 19:07] LABS: Ovalocytes FEW; Stomatocytes Few
[2023-02-03] MEDS ORDERED: SODIUM CHLORIDE 0.9% 2,000 ML IV ONE (19:15)
[2023-02-03] MEDS ORDERED: HYDROmorphone HCL 2 MG/ML VL/or syr IV ONE (19:15)
[2023-02-04] MEDS ORDERED: ACETAMINOPHEN 500 MG TAB PO ONE (00:15)
[2023-02-04] MEDS ORDERED: KETOROLAC TROMETH 30 MG/ML 1ML VIAL IV ONE (00:15)
[2023-02-04] MEDS ORDERED: KETOROLAC TROMETH 30 MG/ML 1ML VIAL IM ONE (00:45)
[2023-02-04 01:57] VITALS: BP 91/42; PULSE 72; RESP 17; TEMP 98.9; O2SAT 97
== END 2023-02-04 02:12 | disposition home or self-care (01) ==
LOC: ER 17:15
DX: D57.00 Hb-SS disease with crisis, unspecified (principal)
CPT/HCPCS: 36415; 80053; 85007; 85027; 96361; 96372; 96374; 99284; J1170; J1885; J7030